=== PATIENT | male | born 1995 | race Caucasian/White ===

== ENCOUNTER 2021-09-26 09:23 | Emergency (ER) | payer OTHER ==
[2021-09-26] MEDS ORDERED: PAXLOVID CO-PA1 EACH PO (10:49)
[2021-09-26] MEDS ORDERED: ZOFRAN 4 MG TAB4 MG PO (10:50)
== END 2021-09-26 12:38 | disposition home or self-care (01) ==
LOC: ER1 09:23
DX: U07.1 COVID-19 (principal); R11.2 Nausea with vomiting, unspecified
CPT/HCPCS: 96374; 96375; 99283; J1885; J2405